=== PATIENT | female | born 1980 | race Caucasian/White ===

== ENCOUNTER 2019-05-05 04:55 | Day surgery (SDC) | payer OTHER ==
[2019-05-01 10:36] VITALS: BMI 22.6
[2019-05-05] MEDS ORDERED: LIDOCAINE HCL 1%, 10 MG/ML (20ML VIAL) ONE (10:18)
[2019-05-05] MEDS ORDERED: LIDOCAINE 1%-EPI 1:100,000 30 ML MDV IJ ONE (10:31)
[2019-05-05] MEDS ORDERED: MIDAZOLAM HCL 2 MG/2 ML SINGLE DOSE VIAL ONE ×2 (10:43→11:14)
[2019-05-05] MEDS ORDERED: PROPOFOL 20 ML ONE ×2 (10:43→11:32)
--- NOTE | 2019-05-05 10:54 | HP ---
History & Physical Update - History History: No Change - Physical Physical: No Change - Assessment Assessment: No Change - Plan Plan: No Change (for excision of 2 scalp cysts; r/b/t/a's d/w the patient and informed consent obtained.)
[2019-05-05] MEDS ORDERED: BACITRACIN 15 GM TUBE TOPICAL OINTMENT ONE (11:23)
[2019-05-05] MEDS ORDERED: LIDOCAINE HCL 1%, 10 MG/ML (20ML VIAL) NR ONE ×2 (11:27)
[2019-05-05] MEDS ORDERED: BUPIVACAINE HCL/PF 0.5% (5MG/ML) 10 ML VIAL IJ ONE ×2 (11:27)
[2019-05-05] MEDS ORDERED: BACITRACIN 15 GM TUBE TOPICAL OINTMENT TP ONE (11:43)
[2019-05-05 12:22] VITALS: TEMP 98
--- NOTE | 2019-05-05 12:33 | OP ---
Operative Note - Note: Operative Date: 05/05/19 Pre-Operative Diagnosis: Scalp cysts x2 Operation: Excision of scalp cysts x 2 Post-Operative Diagnosis: Same as Pre-op Surgeon: Deshanu Hanley Manager Of Selection And Assessment: Eryn Brantley Anesthesiologist/DENSITY CONTROL PUNCHER: Garo Barney Anesthesia: Local, MAC Specimens Removed: cysts x2 Estimated Blood Loss (mls): 10 Fluid Volume Replaced (mls): 400 Operative Report Dictated: Yes
--- NOTE | 2019-05-05 12:34 | SURG ---
Surgery Quality Officer Note Quality Officer: Eryn Brantley PA-C Date of Service: 05/05/19 Diagnosis: Scalp cysts x2 Procedure: Excision of scalp cysts x 2 I was present for the entirety of the operative procedure. For further detail, please refer to operative report. Visit type - Case Type Case Type: Scheduled - Emergency Emergency Visit: No - New patient This patient is new to me today: Yes Date on this admission: 05/05/19
[2019-05-05 13:09] VITALS: BP 110/65; PULSE 65
[2019-05-05] MEDS ORDERED: oxyCODONE HCL 5 MG TABLET PO PRN (14:10)
[2019-05-05] MEDS ORDERED: ACETAMINOPHEN 325 MG TABLET (FP) PO PRN (14:10)
[2019-05-05] MEDS ORDERED: ONDANSETRON 4 MG/2 ML VIAL IVPUSH PRN (14:10)
[2019-05-05] MEDS ORDERED: LACTATED RINGERS SOLUTION 1,000 ML IV SCH (14:15)
--- NOTE | 2019-05-06 13:45 | OP ---
DATE OF OPERATION: 05/05/2019 PREOPERATIVE DIAGNOSIS: Scalp cyst. POSTOPERATIVE DIAGNOSIS: Scalp cyst. PROCEDURE: Excision of 2 scalp cysts. SURGEON: Deshaun Hanley MD HOUSEHOLD REFRIGERATOR MECHANIC: YUNG Anand ANESTHESIA: Local with IV sedation. OPERATIVE FINDINGS: There was 2 scalp cysts, 1 at the vertex of the scalp and the other in the occipital area. They ranged in size from 1.5 cm to 2.1 cm, and the rest of the findings were unremarkable. DESCRIPTION OF PROCEDURE: The patient was placed on the operating room table in the supine position, and the area over both cysts was prepped with Betadine, draped in sterile fashion. A time-out was taken and then after intravenous sedation, both areas were infiltrated with 1% Xylocaine, 0.5% Marcaine in equal concentrations. Incision was made with a scalpel and taken down through skin and subcutaneous fat and blunt dissection carried out until the cyst was completely mobilized and removed from the scalp using the electrocautery to mobilize the base of the cyst. Copious irrigation was carried out and hemostasis secured with electrocautery and the wound closed in a single layer using 4-0 Prolene locked, horizontal, mattress sutures. The wound was dressed with bacitracin, and the exact same procedure was repeated on the remaining cyst. The procedure was terminated at this point and the patient transferred to the post anesthesia care unit in stable condition awake and alert. ESTIMATED BLOOD LOSS: 10 mL. REPLACEMENTS: Crystalloid. DRAINS: None. SPECIMENS: Scalp cyst to pathology. I, Deshaun Hanley, was physically present in the operating room from the time the patient was placed on the operating room table until she was transferred to the post anesthesia care unit in [place]. MD INO Narvaez/[id number] MTDD
--- NOTE | 2019-05-06 15:16 | PATH ---
Surgical Pathology Report Patient Name: GIL BARBA [facility]. Rec. #: [id number] /Age/Gender: 1980 (Age: 39) / F Account: [id number] Location: [facility] SURGICAL Taken: 05/05/2019 Received: 05/05/2019 Reported: 05/06/2019 Physicians: Deshaun Hanley MD Specimen(s) Received SCALP CYST Clinical History Scalp cyst Final Diagnosis SCALP CYST, EXCISION: TRICHILEMMAL (PILAR) CYST. Electronically Signed Susan Corcoran M.D. Gross Description Received in formalin labeled "scalp cysts," are 2 chang portions of a disrupted cyst measuring 0.9 x 0.5 x 0.2 cm and 1.4 x 1.1 x 0.6 cm. Serologist sections are submitted in one cassette. DL/05/05/2019 saudi/05/05/2019
== END 2019-05-05 13:10 | disposition home or self-care (01) ==
LOC: JASU-SURG 04:55
PROVIDERS: ATTEND Surgery
PROC: 0JB00ZZ Excision of Scalp Subcutaneous Tissue and Fascia, Open Approach (ICD-10-PCS; principal; 2019-05-05 11:00)
DX: L72.12 Trichodermal cyst (principal)
CPT/HCPCS: 84703; 88304-TC

== ENCOUNTER 2023-01-24 09:50 | Day surgery (SDC) | payer OTHER ==
[2023-01-22 14:55] VITALS: BMI 23.3
[2023-01-24 11:26] VITALS: RESP 16; TEMP 97.1
[2023-01-24 12:04] VITALS: BP 106/58; PULSE 78
== END 2023-01-24 12:10 | disposition home or self-care (01) ==
LOC: FASU-ENDO 09:50
PROVIDERS: ATTEND Internal Medicine Gastroenterology
PROC: 0DJD8ZZ Inspection of Lower Intestinal Tract, Via Natural or Artificial Opening Endoscopic (ICD-10-PCS; principal; 2023-01-24 11:02)
DX: K92.1 Melena (principal); K64.1 Second degree hemorrhoids
CPT/HCPCS: 81025

== ENCOUNTER 2023-08-01 09:28 | Emergency (ER) | payer OTHER ==
[2023-08-01 09:31] VITALS: BP 126/79; PULSE 86; RESP 18; TEMP 97; BMI 25.0
[2023-08-01] MEDS ORDERED: KETOROLAC TROMETHAMINE 30 MG/1 ML VIAL ONE (11:07)
[2023-08-01] MEDS ORDERED: ACETAMINOPHEN 325 MG TABLET (FP) ONE (11:07)
[2023-08-01] MEDS ORDERED: diazePAM 5 MG TABLET ONE (11:07)
[2023-08-01] MEDS: KETOROLAC TROMETHAMINE 30 MG/1 ML VIAL IM ONE (11:12)
[2023-08-01] MEDS: diazePAM 5 MG TABLET PO ONE (11:13)
[2023-08-01] MEDS: ACETAMINOPHEN 500 MG TABLET (FP) PO ONE (11:13)
[2023-08-01] MEDS ORDERED: oxyCODONE HCL 5 MG TABLET ONE (13:23)
[2023-08-01] MEDS ORDERED: METHOCARBAMOL 500 MG TABLET ONE (13:24)
[2023-08-01] MEDS: METHOCARBAMOL 500 MG TABLET PO ONE (13:25)
[2023-08-01] MEDS: oxyCODONE HCL 5 MG TABLET PO ONE (13:25)
== END 2023-08-01 15:00 | disposition home or self-care (01) ==
LOC: JERFT 09:28 → JER 09:28 → JERFT 15:00
PROC: 3E0233Z Introduction of Anti-inflammatory into Muscle, Percutaneous Approach (ICD-10-PCS; principal; 2023-08-01)
DX: G24.3 Spasmodic torticollis (principal); M62.838 Other muscle spasm; M54.2 Cervicalgia; R20.2 Paresthesia of skin
CPT/HCPCS: 72050-TC-FY; 72125-TC; 84703; 99285-25

== ENCOUNTER 2025-01-20 13:50 | Day surgery (SDC) | payer OTHER ==
[2025-01-20] MEDS: IRON SUCROSE INJECTION 300 MG in SODIUM CHLORIDE 250 ML IVPB ONE (14:05)
[2025-01-20 15:46] VITALS: RESP 20; TEMP 98.4
[2025-01-20 15:50] VITALS: BP 114/73; PULSE 59
== END 2025-01-20 15:10 | disposition home or self-care (01) ==
LOC: JONCNONCHE 13:50 → J7W 14:19 → JONCNONCHE 15:10
PROVIDERS: ATTEND Internal Medicine Hematology & Oncology
PROC: 3E033GC Introduction of Other Therapeutic Substance into Peripheral Vein, Percutaneous Approach (ICD-10-PCS; principal; 2025-01-20)
DX: D50.9 Iron deficiency anemia, unspecified (principal)
CPT/HCPCS: 84703; 96365; J1756

== ENCOUNTER 2025-01-27 14:44 | Day surgery (SDC) | payer OTHER ==
[2025-01-27] MEDS: IRON SUCROSE INJECTION 300 MG in SODIUM CHLORIDE 250 ML IVPB ONE (14:56)
[2025-01-27 16:48] VITALS: BP 117/64; PULSE 68; RESP 20; TEMP 98.3
== END 2025-01-27 16:50 | disposition home or self-care (01) ==
LOC: JONCNONCHE 14:44
PROVIDERS: ATTEND Internal Medicine Hematology & Oncology
PROC: 3E033GC Introduction of Other Therapeutic Substance into Peripheral Vein, Percutaneous Approach (ICD-10-PCS; principal; 2025-01-27)
DX: D50.9 Iron deficiency anemia, unspecified (principal)
CPT/HCPCS: 96365; J1756

== ENCOUNTER 2025-02-10 14:07 | Day surgery (SDC) | payer OTHER ==
[2025-02-10] MEDS: IRON SUCROSE INJECTION 300 MG in SODIUM CHLORIDE 250 ML IVPB ONE (14:18)
[2025-02-10 14:19] VITALS: TEMP 98.1
[2025-02-10 16:01] VITALS: BP 106/63; PULSE 64; RESP 18
== END 2025-02-10 16:20 | disposition home or self-care (01) ==
LOC: JONCNONCHE 14:07
PROVIDERS: ATTEND Internal Medicine Hematology & Oncology
PROC: 3E033GC Introduction of Other Therapeutic Substance into Peripheral Vein, Percutaneous Approach (ICD-10-PCS; principal; 2025-02-10)
DX: D50.9 Iron deficiency anemia, unspecified (principal)
CPT/HCPCS: 96365; J1756